=== PATIENT | male | born 1990 | race Caucasian/White ===

== ENCOUNTER 2019-01-01 21:30 | Emergency (ER) | payer OTHER ==
--- NOTE | 2019-01-01 21:39 | EDM.PDOC ---
ED HPI GENERAL MEDICAL PROBLEM - General Chief Complaint: Bite:Animal, Insect Stated Complaint: DOG BITE Time Seen by Provider: 01/01/19 21:31 Source of Information: Reports: Patient History Limitations: Reports: No Limitations - History of Present Illness INITIAL COMMENTS - FREE TEXT/NARRATIVE: HISTORY AND PHYSICAL: History of present illness: Patient is a 28-year-old male presents to the ED today with concern of a dog bite to his right hand that occurred just prior to arrival to the ED. Patient states he is not up-to-date on his tetanus vaccine. Patient states that he's been able to use the right hand without difficulty. Patient states the dog was the neighbors lico which became aggressive when patient's dog was near. Patient is unsure of the rabies status of the dog. Patient denies fever, chills, chest pain, shortness of breath, or cough. Denies headache, neck stiff ness, change in vision, syncope, or near syncope. Denies nausea, vomiting, abdominal pain, diarrhea, constipation, or dysuria. Has not noted any blood in urine or stool. Patient has been eating and drinking appropriately. Review of systems: As per history of present illness and below otherwise all systems reviewed and negative. Past medical history: As per history of present illness and as reviewed below otherwise noncontributory. Surgical history: As per history of present illness and as reviewed below otherwise noncontributory. Social history: See social history for further information Family history: As per history of present illness and as reviewed below otherwise noncontributory. Physical exam: General: Patient is alert, oriented, and in no acute distress. Patient sitting comfortably on exam table. HEENT: Atraumatic, normocephalic, pupils equal and reactive bilaterally, negative for conjunctival pallor or scleral icterus, mucous membranes moist, TMs normal bilaterally, throat clear, neck supple, nontender, trachea midline. No drooling or trismus noted. No meningeal signs. No hot potato voice noted. Lungs: Clear to auscultation, breath sounds equal bilaterally, chest nontender. Heart: S1S2, regular rate and rhythm without overt murmur Abdomen: Soft, nondistended, nontender. Negative for masses or hepatosplenomegaly. Negative for costovertebral tenderness. Pelvis: Stable nontender. Genitourinary: Deferred. Rectal: Deferred. Skin: Intact, warm, dry. No lesions or rashes noted. Extremities: Negative for cords or calf pain. Neurovascular unremarkable. There is a 1 cm laceration involving the subcutaneous tissue of the dorsal aspect of the second digit on the right hand. There is an adjacent 0.5 cm superficial laceration of the same finger. There is a puncture heri on the base thenar eminence of the right hand without blood loss. Patient has full range of motion of all digits of the right hand and wrist. Radial pulses grossly intact and capillary refill less than 2 seconds of the right extremity. Neuro: Awake, alert, oriented. Cranial nerves II through XII unremarkable. Cerebellum unremarkable. Motor and sensory unremarkable throughout. Exam nonfocal. Notes: The larger laceration over the second digit was sutured due to deeper involvement of the subcutaneous tissue. However, the others appear more superficial and do not require suturing at this time. Discussed the importance for follow-up with a primary care provider. Voices understanding and is agreeable to plan of care. Denies any further questions or concerns at this time. Diagnostics: hand XR Therapeutics: lidocaine, suture, tdap, bacitracin, rabies vaccine and IG, RX for future rabies vaccine given Prescription: Augmentin Impression: Dog bite, right hand 2nd digit laceration, right Plan: 1. Keep the area clean and dry. Continue to monitor for signs of infection as discussed. Sutures to be removed in 7-10 days. 2. Tylenol and/or ibuprofen as directed and as needed for pain management and discomfort. Take medication as prescribed 3. Please follow-up with your primary care provider as discussed. Return to the ED as needed and as discussed. Definitive disposition and diagnosis as appropriate pending reevaluation and review of above. right index Pain Score (Numeric/FACES): 5 - Related Data Allergies Allergy/AdvReac Type Severity Reaction Status Date / Time No Known Allergies Allergy Verified 01/01/19 21:38 Home Meds: Home Meds . [No Known Home Meds] 01/01/19 [History] ED ROS GENERAL - Review of Systems Review Of Systems: ROS reveals no pertinent complaints other than HPI. ED EXAM, ANIMAL BITE - Physical Exam Exam: See Below (see Dictation) ED ANIMAL BITE PROCEDURES - Laceration/Wound Repair Right Digit - 2nd (Index) Lac/Wound Length In cm: 1 Appearance: Subcutaneous, Linear, Mildly Contaminated Distal NVT: Neuro & Vascular Intact, No Tendon Injury Anesthetic Type: Local Local Anesthesia - Lidocaine (Xylocaine): 1% Plain Local Anesthetic Volume: 2cc Skin Prep: Chlorhexidine (Hibiciens), Providone-Iodine (Betadine) Saline Irrigation (cc's): 30 Exploration/Debridement/Repair: Wound Explored, In a Bloodless Field, Explored to Base, No Foreign Material Found Closed With: Sutures Suture Size: 4-0 # of Sutures: 2 Suture Type: Interrupted Drain Placement: No Sterile Dressing Applied: Nurse Tetanus Status Addressed: Yes Complications: No Course - Vital Signs Last Recorded V/S: Last Vital Signs Temp 36.6 C 01/01/19 21:38 Pulse 101 H 01/01/19 21:38 Resp 18 01/01/19 21:38 BP 141/97 H 01/01/19 21:38 Pulse Ox 100 01/01/19 21:38 - Orders/Labs/Meds Orders: Active Orders 24 hr Category Date Time Status Vaccines to be Administered [RC] PER UNIT ROUTINE Care 01/01/19 21:48 Active Vaccines to be Administered [RC] PER UNIT ROUTINE Care 01/01/19 22:41 Active Meds: Medications Discontinued Medications Generic Name Dose Route Start Last Admin Trade Name Freq PRN Reason Stop Dose Admin Bacitracin 1 dose 01/01/19 21:50 01/01/19 22:00 Bacitracin Oint 1 Gm TOP 01/01/19 21:51 1 dose ONETIME ONE Administration Diphtheria/Tetanus/Acell Pertussis 0.5 ml 01/01/19 21:48 01/01/19 22:00 Adacel IM 01/01/19 21:49 0.5 ml .ONCE ONE Administration Lidocaine HCl 5 ml 01/01/19 21:50 01/01/19 22:00 Xylocaine-Mpf 1% INJECT 01/01/19 21:51 5 ml ONETIME ONE Administration Rabies Immune Globulin 2,494 unit 01/01/19 22:40 01/01/19 22:59 Hyperrab S/D IM 01/01/19 22:41 2,494 unit ONETIME ONE Administration Rabies Vaccine 2.5 unit 01/01/19 22:40 01/01/19 23:00 Rabavert IM 01/01/19 22:41 2.5 unit .ONCE ONE Administration Departure - Departure Time of Disposition: 23:05 Disposition: Home, Self-Care 01 Clinical Impression: Dog bite Qualifiers: Encounter type: initial encounter Qualified Code(s): W54.0XXA - Bitten by dog, initial encounter Finger laceration Qualifiers: Encounter type: initial encounter Finger: index finger Damage to nail status: without damage Foreign body presence: without foreign body Laterality: right Qualified Code(s): S61.210A - Laceration without foreign body of right index finger without damage to nail, initial encounter - Discharge Information Referrals: Leatha Greenfield DO [Primary Care Provider] - Forms: ED Department Discharge Additional Instructions: The following information is given to patients seen in the emergency department who are being discharged to home. This information is to outline your options for follow-up care. We provide all patients seen in our emergency department with a follow-up referral. The need for follow-up, as well as the timing and circumstances, are variable depending upon the specifics of your emergency department visit. If you don't have a primary care physician on staff, we will provide you with a referral. We always advise you to contact your personal physician following an emergency department visit to inform them of the circumstance of the visit and for follow-up with them and/or the need for any referrals to a consulting specialist. The emergency department will also refer you to a specialist when appropriate. This referral assures that you have the opportunity for follow-up care with a specialist. All of these measure are taken in an effort to provide you with optimal care, which includes your follow-up. Under all circumstances we always encourage you to contact your private physician who remains a resource for coordinating your care. When calling for follow-up care, please make the office aware that this follow-up is from your recent emergency room visit. If for any reason you are refused follow-up, please contact the [facility] Emergency Department at and asked to speak to the emergency department charge nurse. [facility] [address] [place] [id number] [address] 1. Keep the area clean and dry. Continue to monitor for signs of infection as discussed. Sutures to be removed in 7-10 days. 2. Tylenol and/or ibuprofen as directed and as needed for pain management and discomfort. Take medication as prescribed 3. Please follow-up with your primary care provider as discussed. Return to the ED as needed and as discussed. - My Orders Last 24 Hours: My Active Orders 01/01/19 21:48 Vaccines to be Administered [RC] PER UNIT ROUTINE 01/01/19 22:41 Vaccines to be Administered [RC] PER UNIT ROUTINE - Assessment/Plan Last 24 Hours: My Active Orders 01/01/19 21:48 Vaccines to be Administered [RC] PER UNIT ROUTINE 01/01/19 22:41 Vaccines to be Administered [RC] PER UNIT ROUTINE
[2019-01-01] MEDS ORDERED: Diphtheria,Pertussis(Acell),Tetanus Vaccine 0.5 ML Syringe IM ONE (21:48)
[2019-01-01] MEDS ORDERED: Bacitracin Oint 1 GM U/D Packet TOP ONE (21:50)
[2019-01-01] MEDS ORDERED: Rabies Immune Globulin PF 150 Units/ML 10 ML SDV IM ONE (22:40)
[2019-01-01] MEDS ORDERED: Rabies Vaccine (Avian) 2.5 Unit Inj Kit IM ONE (22:40)
--- NOTE | 2019-01-01 22:47 | CR ---
INDICATION: Dog bite TECHNIQUE: Hand radiograph 2 views right COMPARISON: None FINDINGS: Bone: No acute fractures or aggressive bone lesions are identified. Joint: The carpal and metacarpal-phalangeal joints are unremarkable in appearance. The interphalangeal joints are normal in appearance. Soft tissue: Unremarkable. No radiopaque foreign bodies are seen. IMPRESSION: 1. No acute osseous injuries or abnormalities are noted. Dictated by: Kana Marquez MD @ 01/01/2019 22:46:45 (Electronically Signed)
== END 2019-01-01 23:21 | disposition home or self-care (01) ==
LOC: MW.ED 21:30
DX: S61.250A Open bite of right index finger without damage to nail, initial encounter (principal); S61.210A Laceration without foreign body of right index finger without damage to nail, initial encounter; Z23 Encounter for immunization; W54.0XXA Bitten by dog, initial encounter
CPT/HCPCS: 12001; 73120; 90375; 90471; 90675; 90715; 96372; 99283; J2001